=== PATIENT | female | born 1950 ===

== ENCOUNTER → 2018-10-31 23:50 | Outpatient (ROUT) | payer OTHER, SELFPAY ==
[2018-11-01 00:57] LABS: Hematocrit 32.2 % (36-46); Mean Corpuscular Hemoglobin 30.1 PG (26-34); Mean Corpuscular Volume 88.5 fL (80-100); Platelet Count 240 X10^3/uL (150-400); Red Blood Cell Count 3.64 X10^6/uL (4.0-5.2); Red Cell Distribution Width 12.4 % (11.6-14.8); White Blood Cell Count 22.1 X10^3/uL (4.5-11.0)
[2018-11-01 01:35] LABS: Erythrocyte Sedimentation Rate 57 MM/HR (0-20)
[2018-11-01 05:00] LABS: Add Manual Diff / Slide Review YES
[2018-11-01 05:02] LABS: Neutrophils Absolute Manual 18343 /uL (3000-5900); RBC Morphology Normal Morphology; Total Cells Counted 100
== END ==
PROVIDERS: Visit Provider Naturopath
DX: R10.9 Unspecified abdominal pain (principal); R53.83 Other fatigue; R14.0 Abdominal distension (gaseous); R50.9 Fever, unspecified; F50.89 Other specified eating disorder
CPT/HCPCS: 36415; 85025; 85651